=== PATIENT | female | born 1950 | race African-American/Black ===

== ENCOUNTER 2022-03-16 18:12 | Inpatient (IN) | payer OTHER ==
[~2022-03-16] VITALS: Ht 167.6 cm; Wt 76.7 kg
[~2022-03-16 18:12] MED LIST: AMLO5TAB88 MT; APIX5TAB MT; ASPI-1497 MT; ATOR40TA70 MT; CAPT50TA3 MT; ESCI10TA MT; GABA-532 MT; HYDR-4001 MT; HYDR-4346 PO; HYDR25TA MT
[2022-03-16] MEDS ORDERED: DIPHENHYDRAMINE 50MG/ML VIAL IV ONE (19:30)
[2022-03-16] MEDS ORDERED: METOCLOPRAMIDE HCL 10MG/2ML VIAL IV ONE (19:30)
[2022-03-16] MEDS ORDERED: SODIUM CHLORIDE 0.9% 1,000 ML IV ONE (19:30)
[2022-03-16 20:52] LABS: BASOPHILS % 0.6 % (0.0-2.0); EOSINOPHILS % 0.3 % (0.0-5.0); HEMATOCRIT. 40.1 % (36.0-48.0); HEMOGLOBIN. 13.1 g/dL (12.0-16.0); LYMPHOCYTES % 12.3 % (20.0-50.0); MEAN CORPUSCULAR HEMOGLOBIN 29.3 pg (28.0-32.0); MEAN CORPUSCULAR VOLUME 89.8 fL (81.0-99.0); MONOCYTES % 7.8 % (2.0-8.0); PLATELET 206 x1000/uL (130-400); RED BLOOD CELL COUNT 4.46 mill/uL (4.2-5.4); RED CELL DISTRIBUTION WIDTH 15.5 % (11.6-14.6)
[2022-03-16 21:01] LABS: CHLORIDE 108 mEq/L (98-107)
[2022-03-16] MEDS ORDERED: DIPHENHYDRAMINE 50MG/ML VIAL IV SCH (22:45)
[2022-03-16] MEDS ORDERED: METOCLOPRAMIDE HCL 10MG/2ML VIAL IV SCH (22:45)
[2022-03-17] VITALS (54 sets, daily range): BP systolic 108–154; BP diastolic 26–74
[2022-03-17] MEDS ORDERED: MORPHINE SULFATE 4 MG/ML CPJ (NOT FOR IM USE) IV ONE (00:15)
[2022-03-17] MEDS ORDERED: LEVETIRACETAM 500MG PREMIX 100 ML IV ONE (01:45)
[2022-03-17] MEDS ORDERED: IOHEXOL-350 100 ML BOTTLE ONE (06:57)
[2022-03-17] MEDS ORDERED: MORPHINE SULFATE 2 MG/ML CPJ (NOT FOR IM USE) IV ONE (10:06)
[2022-03-17] MEDS ORDERED: NALOXONE HCL 0.4MG/ML VIAL IV PRN (11:30)
[2022-03-17] MEDS: NICARDIPINE 100 MG in SODIUM CHLORIDE 0.9% 60 ML IV PRN ×2 (11:30→20:45)
[2022-03-17] MEDS: LEVETIRACETAM 500MG PREMIX 100 ML IV NR ×2 (11:45→12:00)
[2022-03-17] MEDS ORDERED: LEVETIRACETAM 500 MG in SODIUM CHLORIDE 0.9% 100 ML IV SCH (11:45)
[2022-03-17] MEDS: DEXT 5%/LACTATED RINGERS 1,000 ML IV SCH (12:30)
[2022-03-17] MEDS: FAMOTIDINE 20MG/2ML VIAL IV SCH ×2 (12:30→20:47)
[2022-03-17] MEDS: MORPHINE SULFATE 2 MG/ML CPJ (NOT FOR IM USE) IV PRN ×2 (12:31→19:12)
[2022-03-17] MEDS ORDERED: CLOP-31 PO (14:54)
[2022-03-17] MEDS ORDERED: METO-539 PO (14:54)
[2022-03-17] MEDS ORDERED: FAMO-135 PO (14:54)
[2022-03-17] MEDS ORDERED: LISI20TA31 PO (14:54)
[2022-03-17] MEDS ORDERED: POTASSIUM CHLORIDE INJ 40 MEQ in DEXT 5% WATER 250 ML IV ONE (19:15)
[2022-03-17] MEDS: KCL 20MEQ/100ML X 2 FOR TOTAL KCL 40MEQ/200ML IV SCH ×2 (20:45→22:33)
[2022-03-17] MEDS: LEVETIRACETAM 500MG PREMIX 100 ML IV SCH (20:45)
[2022-03-18] VITALS (87 sets, daily range): BP systolic 90–153; BP diastolic 44–100
[2022-03-18] MEDS: DEXT 5%/LACTATED RINGERS 1,000 ML IV SCH ×2 (04:34→20:40)
[2022-03-18 05:48] LABS: BASOPHILS % 0.4 % (0.0-2.0); EOSINOPHILS % 0.9 % (0.0-5.0); HEMOGLOBIN. 12.5 g/dL (12.0-16.0); LYMPHOCYTES % 12.9 % (20.0-50.0); MEAN CORPUSCULAR HEMOGLOBIN 29.6 pg (28.0-32.0); MEAN CORPUSCULAR VOLUME 90.1 fL (81.0-99.0); MEAN PLATELET VOLUME 10.6 fl (7.4-10.4); MONOCYTES % 9.4 % (2.0-8.0); NEUTROPHILS % 76.4 % (40.0-76.0); PLATELET 200 x1000/uL (130-400); RED BLOOD CELL COUNT 4.22 mill/uL (4.2-5.4); RED CELL DISTRIBUTION WIDTH 16.1 % (11.6-14.6)
[2022-03-18 05:51] LABS: CHLORIDE 106 mEq/L (98-107)
[2022-03-18] MEDS: AMLODIPINE 10MG TABLET PO SCH ×2 (08:00→09:00)
[2022-03-18] MEDS: LEVETIRACETAM 500MG PREMIX 100 ML IV SCH ×2 (08:52→20:36)
[2022-03-18] MEDS: FAMOTIDINE 20MG/2ML VIAL IV SCH ×2 (08:52→20:36)
[2022-03-18] MEDS ORDERED: POTASSIUM CHLORIDE INJ 40 MEQ in DEXT 5% WATER 250 ML IV ONE (10:00)
[2022-03-18] MEDS: MORPHINE SULFATE 2 MG/ML CPJ (NOT FOR IM USE) IV PRN ×3 (13:37→23:11)
[2022-03-18] MEDS: ONDANSETRON HCL 4MG/2ML INJ IV PRN (14:41)
[2022-03-19] VITALS (68 sets, daily range): BP systolic 105–178; BP diastolic 47–81
[2022-03-19] MEDS: ONDANSETRON HCL 4MG/2ML INJ IV PRN ×2 (06:15→18:35)
[2022-03-19] MEDS ORDERED: IOHEXOL-350 100 ML BOTTLE ONE (06:17)
[2022-03-19] MEDS: NICARDIPINE 100 MG in SODIUM CHLORIDE 0.9% 60 ML IV PRN (06:35)
[2022-03-19] MEDS: ACETAMINOPHEN 325MG TABLET PO PRN ×2 (08:01→17:44)
[2022-03-19] MEDS: LEVETIRACETAM 500MG PREMIX 100 ML IV SCH ×2 (09:00→20:41)
[2022-03-19] MEDS ORDERED: LOSARTAN POTASSIUM 50 MG TABLET PO SCH (09:30)
[2022-03-19] MEDS: FAMOTIDINE 20MG/2ML VIAL IV SCH ×2 (10:03→20:41)
[2022-03-19] MEDS: AMLODIPINE 10MG TABLET PO SCH (10:04)
[2022-03-19 10:32] LABS: CHLORIDE 106 mEq/L (98-107)
[2022-03-19] MEDS: DEXT 5%/LACTATED RINGERS 1,000 ML IV SCH (13:28)
[2022-03-19] MEDS: MORPHINE SULFATE 2 MG/ML CPJ (NOT FOR IM USE) IV PRN ×3 (14:30→23:51)
[2022-03-19] MEDS: CLONIDINE 0.1MG TABLET PO PRN (17:25)
[2022-03-19] MEDS ORDERED: HYDRALAZINE 20MG/ML VIAL IV NR (19:00)
[2022-03-19] MEDS: LOSARTAN POTASSIUM 50 MG TABLET PO SCH (20:42)
[2022-03-20] VITALS (11 sets, daily range): BP systolic 101–150; BP diastolic 52–63
[2022-03-20] MEDS: ONDANSETRON HCL 4MG/2ML INJ IV PRN ×3 (02:15→23:36)
[2022-03-20] MEDS: MORPHINE SULFATE 2 MG/ML CPJ (NOT FOR IM USE) IV PRN ×2 (02:53→05:48)
[2022-03-20 07:04] LABS: BASOPHILS % 0.5 % (0.0-2.0); EOSINOPHILS % 0.7 % (0.0-5.0); HEMATOCRIT. 38.3 % (36.0-48.0); HEMOGLOBIN. 12.9 g/dL (12.0-16.0); LYMPHOCYTES % 11.6 % (20.0-50.0); MEAN CORPUSCULAR HEMOGLOBIN 29.7 pg (28.0-32.0); MEAN CORPUSCULAR VOLUME 88.2 fL (81.0-99.0); MEAN PLATELET VOLUME 10.4 fl (7.4-10.4); MONOCYTES % 9.4 % (2.0-8.0); NEUTROPHILS % 77.8 % (40.0-76.0); PLATELET 201 x1000/uL (130-400); RED BLOOD CELL COUNT 4.34 mill/uL (4.2-5.4); RED CELL DISTRIBUTION WIDTH 16.2 % (11.6-14.6)
[2022-03-20 07:11] LABS: CHLORIDE 105 mEq/L (98-107)
[2022-03-20] MEDS: CLONIDINE 0.1MG TABLET PO PRN ×3 (08:09→20:33)
[2022-03-20] MEDS: FAMOTIDINE 20MG/2ML VIAL IV SCH ×2 (08:25→20:32)
[2022-03-20] MEDS: LOSARTAN POTASSIUM 50 MG TABLET PO SCH ×2 (08:26→20:32)
[2022-03-20] MEDS: AMLODIPINE 10MG TABLET PO SCH (08:27)
[2022-03-20] MEDS ORDERED: POTASSIUM CHLORIDE 20MEQ TABLET SR PO SCH (11:00)
[2022-03-20] MEDS: HYDROCODONE/ACETAMINOPHEN 5/325MG TABLET PO PRN ×3 (11:34→22:21)
[2022-03-20] MEDS: HYDRALAZINE HCL 25MG TABLET PO SCH ×2 (14:24→22:22)
[2022-03-20] MEDS: ACETAMINOPHEN 325MG TABLET PO PRN (20:37)
[2022-03-21] MEDS: LEVETIRACETAM 500MG PREMIX 100 ML IV SCH (00:05)
[2022-03-21] MEDS: HYDROCODONE/ACETAMINOPHEN 5/325MG TABLET PO PRN ×4 (02:57→21:33)
[2022-03-21 03:00] VITALS: BP 128/65
[2022-03-21] MEDS: HYDRALAZINE HCL 25MG TABLET PO SCH ×3 (05:51→21:16)
[2022-03-21 08:00] VITALS: BP 120/54
[2022-03-21] MEDS: FAMOTIDINE 20MG/2ML VIAL IV SCH ×2 (08:40→21:17)
[2022-03-21] MEDS: AMLODIPINE 10MG TABLET PO SCH (08:41)
[2022-03-21] MEDS: LOSARTAN POTASSIUM 50 MG TABLET PO SCH ×2 (11:00→21:16)
[2022-03-21] MEDS: ONDANSETRON HCL 4MG/2ML INJ IV PRN (11:53)
[2022-03-21 12:00] VITALS: BP 124/50
[2022-03-21] MEDS ORDERED: POTASSIUM CHLORIDE 20MEQ TABLET SR PO NR (13:15)
[2022-03-21 16:00] VITALS: BP 142/73
[2022-03-21] MEDS: ACETAMINOPHEN 325MG TABLET PO PRN ×2 (17:54→23:23)
[2022-03-21 20:00] VITALS: BP 134/59
[2022-03-22] VITALS: BP 132/60
[2022-03-22] MEDS: HYDROCODONE/ACETAMINOPHEN 5/325MG TABLET PO PRN ×5 (01:55→20:27)
[2022-03-22 04:00] VITALS: BP 133/64
[2022-03-22] MEDS: ACETAMINOPHEN 325MG TABLET PO PRN ×2 (05:22→12:14)
[2022-03-22] MEDS: HYDRALAZINE HCL 25MG TABLET PO SCH ×3 (05:52→20:26)
[2022-03-22 08:00] VITALS: BP 120/72
[2022-03-22] MEDS: AMLODIPINE 10MG TABLET PO SCH (09:43)
[2022-03-22] MEDS: LOSARTAN POTASSIUM 50 MG TABLET PO SCH ×2 (09:43→20:25)
[2022-03-22] MEDS: FAMOTIDINE 20MG/2ML VIAL IV SCH ×2 (10:03→20:25)
[2022-03-22 12:00] VITALS: BP 151/71
[2022-03-22] MEDS: CLONIDINE 0.1MG TABLET PO PRN (12:22)
[2022-03-22] MEDS ORDERED: NALOXONE HCL 0.4MG/ML VIAL IV PRN (15:15)
[2022-03-22 16:00] VITALS: BP 126/62
[2022-03-22 20:00] VITALS: BP 141/66
[2022-03-23] VITALS (8 sets, daily range): BP systolic 100–160; BP diastolic 45–76
[2022-03-23] MEDS: ACETAMINOPHEN 325MG TABLET PO PRN ×2 (00:40→09:34)
[2022-03-23] MEDS: HYDROCODONE/ACETAMINOPHEN 5/325MG TABLET PO PRN ×3 (00:43→18:11)
[2022-03-23] MEDS: HYDRALAZINE HCL 25MG TABLET PO SCH ×3 (06:12→21:30)
[2022-03-23] MEDS: FAMOTIDINE 20MG/2ML VIAL IV SCH ×2 (09:28→21:30)
[2022-03-23] MEDS: AMLODIPINE 10MG TABLET PO SCH (10:43)
[2022-03-23] MEDS: LOSARTAN POTASSIUM 50 MG TABLET PO SCH ×2 (10:43→21:30)
[2022-03-23] MEDS: CLONIDINE 0.1MG TABLET PO PRN (18:11)
[2022-03-23] MEDS: ONDANSETRON HCL 4MG/2ML INJ IV PRN (19:31)
[2022-03-24] VITALS: BP 120/69
[2022-03-24 04:00] VITALS: BP 126/72
[2022-03-24] MEDS: HYDRALAZINE HCL 25MG TABLET PO SCH ×2 (06:54→14:21)
[2022-03-24 07:29] LABS: HEMATOCRIT 39.5 % (36.0-48.0); HEMOGLOBIN 13.3 g/dL (12.0-16.0); MEAN CORPUSCULAR HEMOGLOBIN 29.7 pg (28.0-32.0); MEAN CORPUSCULAR VOLUME 88.6 fL (81.0-99.0); PLATELET 255 x1000/uL (130-400); RED BLOOD CELL COUNT 4.46 mill/uL (4.2-5.4); RED CELL DISTRIBUTION WIDTH 16.1 % (11.6-14.6)
[2022-03-24 07:39] LABS: CHLORIDE 106 mEq/L (98-107)
[2022-03-24 08:00] VITALS: BP 127/69
[2022-03-24] MEDS: AMLODIPINE 10MG TABLET PO SCH (09:00)
[2022-03-24] MEDS: LOSARTAN POTASSIUM 50 MG TABLET PO SCH (09:00)
[2022-03-24] MEDS ORDERED: BISACODYL 10MG SUPP PR PRN (10:00)
[2022-03-24] MEDS ORDERED: DOCUSATE SODIUM 250MG CAPSULE PO SCH (10:00)
[2022-03-24] MEDS: FAMOTIDINE 20MG/2ML VIAL IV SCH (10:31)
[2022-03-24] MEDS: ACETAMINOPHEN 325MG TABLET PO PRN (10:37)
[2022-03-24 12:00] VITALS: BP 135/70
[2022-03-24 15:59] VITALS: BP 135/70
[2022-03-24] MEDS ORDERED: LISI20TA31 MT (16:29)
[2022-03-24] MEDS ORDERED: AMLO10TA80 MT (16:29)
[2022-03-24] MEDS ORDERED: METO-539 MT (16:29)
[2022-03-24] MEDS ORDERED: HYDR-4001 MT (16:29)
[2022-03-24] MEDS ORDERED: DOCU-138 MT (16:30)
[2022-03-24] MEDS ORDERED: ONDA4TAB50 MT (16:30)
== END 2022-03-24 16:30 | disposition home health service (06) | DRG 66 ==
LOC: ER 18:12 → MICUSO 03-17 01:31 → MICUNO 03-17 12:17 → 8WST 03-17 20:16 → MICUNO 03-17 20:32 → 4WST 03-20 01:50 → 6EST 03-23 17:56
PROVIDERS: ADMIT Internal Medicine Pulmonary Disease; ATTEND Internal Medicine Pulmonary Disease
DX: I60.9 Nontraumatic subarachnoid hemorrhage, unspecified (principal); I65.23 Occlusion and stenosis of bilateral carotid arteries; I10 Essential (primary) hypertension; I25.10 Atherosclerotic heart disease of native coronary artery without angina pectoris; E78.00 Pure hypercholesterolemia, unspecified; E05.90 Thyrotoxicosis, unspecified without thyrotoxic crisis or storm; Z79.899 Other long term (current) drug therapy; Z95.1 Presence of aortocoronary bypass graft
CPT/HCPCS: 36415; 70496; 70498; 80048; 80053; 85025; 85027; 86850; 86900; 93005; 97116; 97162; 97166; 97530; 97535; 99285; J0360; J1200; J1953; J2270; J2405; J2765; J3480; J3490; J7030; J7050; J7060; J7121; Q9967